=== PATIENT | male | born 1970 | race Caucasian/White ===

== ENCOUNTER 2020-07-16 11:17 | Day surgery (SDC) | payer OTHER ==
[~2020-07-16] VITALS: Ht 180.3 cm; Wt 82.7 kg
[2020-07-16 11:47] VITALS: BP 117/77
[2020-07-16] MEDS ORDERED: LACTATED RINGERS 1,000 ML IV SCH (12:00)
[2020-07-16] MEDS ORDERED: CHLORHEXIDINE 15 ML UDC MM ONE (12:00)
[2020-07-16] MEDS ORDERED: BACITRACIN OINT 500U/GM, 15 GM ONE (13:33)
[2020-07-16] MEDS ORDERED: OXYMETAZOLINE NASAL SPRAY 0.05%,30ML ONE (13:34)
[2020-07-16] MEDS ORDERED: EPINEPHRINE 1 MG/ML, 1ML ONE (13:34)
[2020-07-16] MEDS ORDERED: LIDOCAINE/PF 1%, 30ML ONE (13:34)
[2020-07-16] MEDS ORDERED: COCAINE TOPICAL SOLN 4%, 4ML ONE (13:34)
[2020-07-16] MEDS ORDERED: MIDAZOLAM 1 MG/ML, 2ML ONE (14:23)
[2020-07-16] MEDS ORDERED: PROPOFOL 50 ML ONE (14:23)
[2020-07-16] MEDS ORDERED: FENTANYL PF 250 MCG/5ML ONE (14:23)
[2020-07-16] MEDS ORDERED: ONDANSETRON 2MG/ML, 2ML ONE (14:37)
[2020-07-16] MEDS ORDERED: DEXAMETHASONE 4 MG/ML, 1ML ONE (14:37)
[2020-07-16] MEDS ORDERED: ROCURONIUM 10 MG/ML,10ML ONE (14:37)
[2020-07-16] MEDS ORDERED: SUCCINYLCHOLINE 20 MG/ML, 10ML ONE (14:37)
[2020-07-16] MEDS ORDERED: CEFAZOLIN 1,000 MG ONE ×2 (14:56)
[2020-07-16] MEDS ORDERED: ACETAMINOPHEN 325 MG TABLET PO PRN ×2 (16:00→18:00)
[2020-07-16] MEDS ORDERED: EPHEDRINE 50 MG/ML, 1ML IVPush PRN (16:00)
[2020-07-16] MEDS ORDERED: LABETALOL 5MG/ML, 20ML IV PRN (16:00)
[2020-07-16] MEDS ORDERED: ONDANSETRON 2MG/ML, 2ML IVPush PRN ×2 (16:00→18:00)
[2020-07-16] MEDS ORDERED: DIAZEPAM 5 MG/ML, 2ML IVPush PRN (16:00)
[2020-07-16] MEDS ORDERED: DIPHENHYDRAMINE 50 MG/ML, 1ML IVPush PRN ×2 (16:00→18:00)
[2020-07-16] MEDS ORDERED: morphine SULFATE 10 MG/ML, 1ML IVPush PRN (16:00)
[2020-07-16] MEDS ORDERED: PROMETHAZINE 25 MG/ML, 1ML IVPush PRN ×2 (16:00→18:00)
[2020-07-16] MEDS ORDERED: MEPERIDINE/PF 25MG/0.5ML IVPush PRN (16:00)
[2020-07-16] MEDS ORDERED: EPHEDRINE 50 MG/ML, 1ML IM PRN ×2 (16:00→18:00)
[2020-07-16] MEDS ORDERED: OXYcodone 5 MG/5 ML ORAL.SOL UDC ONE ×2 (17:33→17:53)
[2020-07-16] MEDS ORDERED: FENTANYL PF 100 MCG/2ML ONE (17:33)
[2020-07-16] MEDS: FENTANYL PF 100 MCG/2ML IV PRN ×3 (17:35→17:45)
[2020-07-16] MEDS: OXYcodone 5 MG/5 ML ORAL.SOL UDC PO PRN ×2 (17:35→17:54)
== END 2020-07-16 18:58 | disposition home or self-care (01) ==
LOC: OUT 11:17
PROVIDERS: ATTEND Specialist
DX: J34.2 Deviated nasal septum (principal); J32.4 Chronic pansinusitis; J32.0 Chronic maxillary sinusitis; J33.0 Polyp of nasal cavity; J34.3 Hypertrophy of nasal turbinates; J45.909 Unspecified asthma, uncomplicated; G47.30 Sleep apnea, unspecified; Z20.822 Contact with and (suspected) exposure to COVID-19; Z79.899 Other long term (current) drug therapy; Z82.49 Family history of ischemic heart disease and other diseases of the circulatory system; Z82.3 Family history of stroke
CPT/HCPCS: 30520; 31253; 31257; 31267; 61782; 87635; 88304; C9122; J0171; J0330; J0690; J1100; J2250; J2405; J2704; J3010; J7120